=== PATIENT | female | born 1970 | race American Indian/Alaskan Native ===

== ENCOUNTER 2021-10-30 13:07 | Outpatient (CLI) | payer OTHER | END 2021-10-30 13:08 | disposition home or self-care (01) | LOC: PF 13:07 | PROVIDERS: ATTEND Internal Medicine | DX: Z02.71 Encounter for disability determination (principal); R06.02 Shortness of breath; J45.909 Unspecified asthma, uncomplicated | CPT/HCPCS: 94060; 94729 ==